=== PATIENT | female | born 1975 | race Caucasian/White ===

== ENCOUNTER 2016-08-29 15:13 | Emergency (ER) | payer SELFPAY ==
[~2016-08-29] VITALS: Ht 172.7 cm; Wt 80.0 kg
[~2016-08-29 15:13] MED LIST: META28.3 PO; PERC5TAB12 PO
[2016-08-29 15:15] VITALS: BP 126/80; PULSE 109; RESP 16; TEMP 98.1; O2SAT 98
[2016-08-29 16:06] VITALS: BP 124/82; PULSE 105; RESP 16; O2SAT 97
--- NOTE | 2016-08-29 16:29 | PD ---
HPI Chief Complaint: Skin Problem Time Seen by Provider: 15:46 Travel History International Travel<30 days: No Contact w/Intl Traveler<30days: No Traveled to known affect area: No History of Present Illness HPI This is a 41-year-old female who presents to the emergency department with 2 days of increasing neck pain involving the right side of her neck associated with a wound on her right lower extremity that's been draining pus over the past 2 days, constant, worsening, moderate severity. She says that her brother has recurrent episodes of MRSA and she was helping him with wound care several days ago and thinks that's where she might have gotten her wound from. She says she's having difficulty turning her neck to the right. She denies any fevers or chills. She does have a remote history of IV drug use but she says she hasn't used in 20 years. PFSH Past Medical History Hepatitis: Yes (Hepatitis C ) Immunizations Current: Yes Influenza Vaccination: No ?: Not LMP: 08/28/2016 : 5 Para: 3 Miscarriage: 2 : 0 Ovarian Cysts: Yes (1995) Tubal Ligation: Yes Past Surgical History Gynecologic Surgery: Yes (ovarian cyst removal ) Other Surgery: Yes (OVARIAN CYST SURGERY 1995) Social History Alcohol Use: No Tobacco Use: Yes (1 PPD) Substance Use: No Allergies-Medications (Allergen,Severity, Reaction): Coded Allergies: Red Dyes - Various (Verified Allergy, Severe, Hives, 08/29/16) Sulfa (Verified Allergy, Severe, Hives, 08/29/16) Reported Meds & Prescriptions Reported Meds & Active Scripts Active Reported Metamucil (Psyllium Husk) 28.3 % Pow 28.3 % PO PRN 2 tbsp once day Percocet 5-325 mg (Oxycodone/Acetaminophen) Oxycodone 5/325 Acetaminophen Tab 1- 2 Tab PO Q4H PRN Review of Systems Except as stated in HPI: all other systems reviewed are Neg Physical Exam Narrative GENERAL:Well appearing, no acute distress SKIN: 3 cm fluctuant erythematous wound on the right mid lower extremity draining purulent drainage HEAD: Atraumatic. Normocephalic. EYES: Pupils equal and round. No injection or drainage. ENT: Moist mucous membranes NECK: Tender to palpation along the cervical spine and right paracervical muscles with pain with movement of the head to the right CARDIOVASCULAR: Regular rate and rhythm. No murmur appreciated. RESPIRATORY: Clear to auscultation. Breath sounds equal bilaterally. GASTROINTESTINAL: Abdomen soft, non-tender, nondistended. MUSCULOSKELETAL: No obvious deformities. NEUROLOGICAL: Awake and alert. No obvious cranial nerve deficits. Moving all extremities. PSYCHIATRIC: Appropriate mood and affect; insight and judgment normal. Data Data Last Documented VS Vital Signs Date Time Temp Pulse Resp B/P Pulse Ox O2 Delivery O2 Flow Rate FiO2 08/29/16 16:06 105 16 124/82 97 Room Air 08/29/16 15:15 98.1 Orders Complete Blood Count With Diff (08/29/16 15:54) Comprehensive Metabolic Panel (08/29/16 15:54) ^ Insert Iv (08/29/16 15:54) Westergren Sedimentation Rate (08/29/16 15:54) C-Reactive Protein (Crp) (08/29/16 15:54) Mri C Spine W&W/O Contrast (08/29/16 ) Labs Laboratory Tests Test 08/29/16 16:20 White Blood Count 9.8 TH/MM3 Red Blood Count 4.69 MIL/MM3 Hemoglobin 13.4 GM/DL Hematocrit 39.2 % Mean Corpuscular Volume 83.5 FL Mean Corpuscular Hemoglobin 28.7 PG Mean Corpuscular Hemoglobin 34.3 % Concent Red Cell Distribution Width 14.5 % Platelet Count 281 TH/MM3 Mean Platelet Volume 8.1 FL Neutrophils (%) (Auto) 67.2 % Lymphocytes (%) (Auto) 23.4 % Monocytes (%) (Auto) 8.2 % Eosinophils (%) (Auto) 0.5 % Basophils (%) (Auto) 0.7 % Neutrophils # (Auto) 6.6 TH/MM3 Lymphocytes # (Auto) 2.3 TH/MM3 Monocytes # (Auto) 0.8 TH/MM3 Eosinophils # (Auto) 0.0 TH/MM3 Basophils # (Auto) 0.1 TH/MM3 CBC Comment DIFF FINAL Differential Comment Erythrocyte Sedimentation Rate 14 mm/hr Sodium Level 138 MEQ/L Potassium Level 4.0 MEQ/L Chloride Level 105 MEQ/L Carbon Dioxide Level 29.1 MEQ/L Anion Gap 4 MEQ/L Blood Urea Nitrogen 15 MG/DL Creatinine 0.75 MG/DL Estimat Glomerular Filtration 84 ML/MIN Rate Random Glucose 84 MG/DL Calcium Level 8.5 MG/DL Total Bilirubin 0.1 MG/DL Aspartate Amino Transf 15 U/L (AST/SGOT) Alanine Aminotransferase 29 U/L (ALT/SGPT) Alkaline Phosphatase 62 U/L C-Reactive Protein 0.70 MG/DL Total Protein 7.3 GM/DL Albumin 3.2 GM/DL MDM Medical Decision Making Medical Screen Exam Complete: Yes Emergency Medical Condition: Yes Interpretation(s) Afebrile, tachycardic, normotensive White count is normal Sedimentation rate is normal CRP is upper limit of normal Differential Diagnosis Abscess, cellulitis, muscle strain, epidural abscess Narrative Course This is a 41-year-old female who presents to the emergency department with a draining abscess on her right lower extremity. She's not febrile. She is listed a monitor and an IV was established. Labs are obtained which were all reassuring with a normal sedimentation rate and a normal white count. I did consider epidural abscess given the patient's symptoms however she says she hasn 't used IV drugs in 20 years and her inflammatory markers are all reassuring setting this is really unlikely. I did discuss the possibility with the patient and told her to come back if she develops any new systemic symptoms or worsening symptoms. The patient Expressed understanding. She'll be discharged on antibiotics. Diagnosis Primary Impression: Abscess of leg Patient Instructions: General Instructions Additional Instructions: If you develop fever, increasing redness, warmth, or spreading of your infection , or severe pain return to the emergency department immediately as you may require antibiotics through your IV. Complete your course of antibiotics as prescribed. Med/Other Pt SpecificInfo: Prescription(s) given Scripts Sulfamethoxazole-Trimethoprim (Bactrim DS)800-160 Mg Tab1 Tab PO BID #20 TAB Ref 0 Prov:Nehal Fabian MD 08/29/16 Cephalexin (Keflex)500 Mg [id number] Mg PO Q8H #30 CAP Ref 0 Prov:Nehal Fabian MD 08/29/16 Disposition: 01 DISCHARGE HOME Condition: Stable Nehal Fabian MD Aug 29, 2016 16:28
[2016-08-29 16:31] LABS: AUTOMATED NEUTROPHIL # 6.6 TH/MM3 (1.8-7.7); BASOPHIL # 0.1 TH/MM3 (0-0.2); BASOPHIL % 0.7 % (0.0-2.0); EOSINOPHIL % 0.5 % (0.0-4.0); HEMATOCRIT 39.2 % (35.0-46.0); HEMO FLAGS DIFF FINAL; LYMPH % 23.4 % (9.0-44.0); LYMPHOCYTE # 2.3 TH/MM3 (1.0-4.8); MEAN CELL VOLUME 83.5 FL (80.0-100.0); MEAN CORPUSCULAR HEMOGLOBIN 28.7 PG (27.0-34.0); MEAN CORPUSCULAR HGB CONC 34.3 % (32.0-36.0); MONO % 8.2 % (0.0-8.0); NEUT % 67.2 % (16.0-70.0); PLATELET COUNT 281 TH/MM3 (150-450); RED BLOOD COUNT 4.69 MIL/MM3 (4.00-5.30); RED CELL DISTRIBUTION WIDTH 14.5 % (11.6-17.2); WHITE BLOOD COUNT 9.8 TH/MM3 (4.0-11.0)
[2016-08-29 16:59] LABS: ANION GAP 4 MEQ/L (5-15); AST (GOT) 15 U/L (15-37); BICARBONATE 29.1 MEQ/L (21.0-32.0); BLOOD UREA NITROGEN 15 MG/DL (7-18); CHLORIDE 105 MEQ/L (98-107); GLOMERULAR FILTRATION RATE 84 ML/MIN (>89); SODIUM (NA) 138 MEQ/L (136-145)
[2016-08-29 17:02] LABS: ALKALINE PHOSPHATASE 62 U/L (45-117); ALT (GPT) 29 U/L (10-53); TOTAL BILIRUBIN ADULT 0.1 MG/DL (0.2-1.0)
[2016-08-29] MEDS ORDERED: BACT800T5 PO (17:23)
[2016-08-29] MEDS ORDERED: CEPH-460 PO (17:23)
== END 2016-08-29 17:42 | disposition home or self-care (01) ==
LOC: NEPC 15:13
DX: L02.415 Cutaneous abscess of right lower limb (principal); M54.2 Cervicalgia; B19.20 Unspecified viral hepatitis C without hepatic coma; F17.200 Nicotine dependence, unspecified, uncomplicated
CPT/HCPCS: 80053; 85025; 85652; 86140; 99283